=== PATIENT | female | born 1990 | race Caucasian/White ===

== ENCOUNTER 2016-06-12 02:28 | Emergency (ER) | payer OTHER ==
[2016-06-12 02:39] VITALS: BP 112/80
[2016-06-12] MEDS ORDERED: TYLENOL PO ONE (03:33)
== END 2016-06-12 02:38 | disposition left against medical advice (07) ==
LOC: ED 02:28
DX: M54.2 Cervicalgia (principal); R51 Headache; H57.12 Ocular pain, left eye; R20.0 Anesthesia of skin; Z53.21 Procedure and treatment not carried out due to patient leaving prior to being seen by health care provider